=== PATIENT | male | born 1995 | race Caucasian/White ===

== ENCOUNTER 2017-08-31 20:29 | Emergency (ER) | payer SELFPAY ==
[2017-08-31] MEDS: PENICILLIN V POTASSIUM 500 MG TAB PO (21:30)
== END 2017-08-31 21:42 | disposition home or self-care (01) ==
LOC: M ED 20:29
DX: J02.0 Streptococcal pharyngitis (principal); F17.200 Nicotine dependence, unspecified, uncomplicated
CPT/HCPCS: 87880